=== PATIENT | female | born 1955 | race Caucasian/White ===

== ENCOUNTER 2019-10-19 15:55 | Outpatient (CLI) | payer MEDICARE, MEDICAID, SELFPAY ==
--- NOTE | 2019-10-19 17:51 | CT_ITS ---
WS: [id number] CT HEAD NONCONTRAST HISTORY: SPEECH DISTURBANCE TECHNIQUE: Contiguous axial imaging performed through the brain in 2.5 mm imaging. Bone and soft tiss ue windows. Sagittal and coronal reformats reviewed. All CT scans at [facility] use at ast one of these dose optimization techniques: automated exposure control; mA and/or kV adjustment pe r patient size (includes targeted exams where dose is matched to clinical indication); or iterative r econstruction. DLP: 783.87 mGy.cm COMPARISON: 08/23/2014 No acute intracranial hemorrhage, midline shift or mass effect. Very mild atrophy and mild chronic microvascular ischemic disease. No sulcal effacement or new infarc t. Ventricles: Normal size with no hydrocephalus. Paranasal sinuses: As visualized are clear. Mastoid air cells: Well pneumatized. Calvarium and scalp: Hyperostosis frontalis interna. No destructive bone lesions. CT/CT head wo con* [id number] IMPRESSION: 1. Mild atrophy and chronic ischemic disease. 2. No acute intracranial process.
== END 2019-10-19 15:56 | disposition home or self-care (01) ==
LOC: RAD 16:02
PROVIDERS: Family Provider Nurse Practitioner Family; PCP Family Medicine; Visit Provider Family Medicine
DX: G31.9 Degenerative disease of nervous system, unspecified (principal); R47.89 Other speech disturbances
CPT/HCPCS: 70450

== ENCOUNTER 2019-12-27 12:51 | Outpatient (CLI) | payer MEDICARE, MEDICAID, SELFPAY ==
--- NOTE | 2019-12-27 13:00 | USCV_ITS ---
Kristina Pride Age: 64 Gender: F : 1955 Exam Date: 12/27/2019 13:15 Ordering Phys: Harris Marie MD Technologist: Niharika Heart Exam Location: [facility] [place] Indication: SLURRED SPEECH Risk Factors: Previous Vascular Surgery: Right Brachial BP: / Left Brachial BP: / Right Left Velocity (cm/s) Spectral Plaque Velocity (cm/s) Spectral Plaque Syst/Diast Broadening Syst/Diast Broadening 77.20/ 27.60 Prox CCA 67.30 / 25.40 84.90/ 25.40 Mid CCA 71.70 / 37.50 83.80/ 36.40 Distal CCA 62.80 / 26.50 61.70/ 24.30 Prox ICA 67.30 / 30.90 63.90/ 28.70 Mid ICA 67.30 / 29.80 55.10/ 28.70 Distal ICA 79.40 / 29.80 71.70 ECA 71.70 0.75 ICA/CCA 1.11 Antegrade Vertebral Antegrade 33.10/ 11.00 cm/s 47.40/ 19.80 cm/s Tri Subclavian Tri CONCLUSIONS Right ICA stenosis <50%. Mild atheromatous plaque right carotid bulb/ICA. Left ICA stenosis <50%. Mild atheromatous plaque left carotid bulb/ICA. Normal antegrade Doppler flow noted in the right vertebral artery. Normal antegrade Doppler flow noted in the left vertebral artery. Rajan Chavira MD (Electronically Signed) Final Date: 27 December 2019 16:17 S
--- NOTE | 2019-12-27 13:03 | US_ITS ---
WS: [id number] ULTRASOUND ABDOMEN CLINICAL INFORMATION: GENERALIZED ABDOMINAL TENDERNESS W/O REBOUND TENDERNESS COMPARISON: None. FINDINGS: Liver Size: Enlarged Craniocaudal length: 17.4 cm. Echogenicity: Coarse echogenicity consistent with fatty infiltration. Surface nodularity: None. Mass (size and location): None. Bile ducts Intrahepatic ducts: Normal. Common bile duct diameter: 0.3 cm. Gallbladder Cholecystectomy Pancreas Normal as visualized. Spleen Splenomegaly: None. Craniocaudal length: 9.8 cm. Upper pole right renal echogenic mass appears unchanged since September 24, 2019. This measures 1.8 x 1.9 cm unchanged. Hydronephrosis: None. Size: 12.2 cm x 4.6 cm x 3.7 cm Left kidney: Normal. Hydronephrosis: None. Size: 11.7 cm x 4.6 cm x 4.2 cm. Abdominal aorta and IVC Visualized portions are normal. Ascites: None. US/US abdomen complete* [id number] IMPRESSION: 1. Right upper pole echogenic mass unchanged since September 24, 2019 and suspi cious for neoplasm in a patient this age. Today this measures 1.8 x 1.9 cm unch anged. 2. Mild hepatomegaly with Diffuse fatty infiltration 3. Cholecystectomy
== END 2019-12-27 12:52 | disposition home or self-care (01) ==
LOC: RADWPI 12:55
PROVIDERS: Family Provider Nurse Practitioner Family; PCP Family Medicine; Visit Provider Family Medicine
DX: R10.817 Generalized abdominal tenderness (principal); R47.89 Other speech disturbances; K76.0 Fatty (change of) liver, not elsewhere classified; I65.23 Occlusion and stenosis of bilateral carotid arteries
CPT/HCPCS: 76700; 93880

== ENCOUNTER → 2020-03-29 10:46 | Outpatient (BNVA) | payer MEDICARE, MEDICAID, SELFPAY | PROVIDERS: Family Provider Nurse Practitioner Family; PCP Family Medicine; Visit Provider Urology | DX: N28.89 Other specified disorders of kidney and ureter (principal); N30.20 Other chronic cystitis without hematuria; N39.41 Urge incontinence | CPT/HCPCS: 81001 ==

== ENCOUNTER 2020-05-15 07:17 | Outpatient (CLI) | payer MEDICARE, MEDICAID, SELFPAY ==
[2020-05-15 07:36] VITALS: BMI 31.6
--- NOTE | 2020-05-15 07:36 | NMCV_ITS ---
NM antoni perf SPECT r/s* [id number] Kristina Pride Age: 65 Gender: F : 1955 Exam Date: 05/15/2020 08:18 Ordering Phys: Majnit Wen MD ([email or web address]) Technologist: MARIA M Wheeler Exam Location: [facility] Indications: Chest pain STRESS TEST [facility] IMAGE PROTOCOL Rest/Stress 1 Lexiscan Day Radiopharmaceutical Dose (mCi) Administration Site Administered by Rest: Tc-99m 10.7 IV MARIA M Wheeler Sestamibi Stress:Tc-99m 32.4 IV MARIA M Wheeler Sestamibi Rest: 15-May-2020 60 Discovery 630 Stress: 15-May-2020 60 Discovery 630 0.4mg Lexiscan. Images obtained in supine and prone position. SPECT RESULTS Technical Quality: Good Raw Data Analysis: Subdiaphragmatic activity, Breast attenuation Image Corrections: No attenuation or motion correction applied Summed Stress Score: 4 Summed Rest Score: 2 Summed Difference Score: 2 PERFUSION FINDINGS There is a small in size, mild in intensity partially reversible defect seen in the apical and apical lateral region. FUNCTIONAL RESULTS (calculated via Gated SPECT) Stress Image LV EF (%): 56 Stress EDV (mL):97 TID: 1.24 Stress ESV (mL):43 FUNCTIONAL FINDINGS: There is normal left ventricular systolic function. IMPRESSIONS 1. Small in size and mild in intensity, partially reversible area in the apical and apical lateral wall. 2. Normal LV systolic function is noted Tarik Vasquez MD (Electronically Signed) Final Date: 16 May 2020 12:49 S
--- NOTE | 2020-05-15 07:36 | ECG_ITS ---
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 Interpretive Statements NAME OF STUDY: LEXISCAN SESTAMIBI STRESS TEST INDICATION: [Chest Pain, ] PROCEDURE: At the baseline, the blood pressure was 141/78 mmHg with a heart rate of 68 bpm. The electrocardiogram showed sinus rhythm with PACs. Normal axis with nonspecific ST depression. The Lexiscan was infused over a period of 20 seconds. A total of 0.4 milligrams of Lexiscan was infused. The stress phase was continued for a total of 5 minutes. Heart rate at the end of the stress phase was 95 bpm with a blood pressure 122/79 mmHg. The EKG at the peak infusion revealed sinus tachycardia with no significant ST-T wave changes. Sestamibi was injected 20 seconds after the Lexiscan infusion. Blood pressure at the end of the recovery phase was 125/77 mmHg with a heart rate of 113 beats per minute. CONCLUSION: 1. No significant EKG changes with the LexiScan infusion. 2. No LexiScan induced chest pain or cardiac arrhythmia. 3. Normal blood pressure and heart rate response. 4. Myocardial perfusion images will be interpreted separately Electronically Signed On 05-17-2020 9:13:57 CDT by Tarik Vasquez M.D. [email or web address]
[2020-05-15 09:04] VITALS: BP 131/78; PULSE 100
[2020-05-15] MEDS: regadenoson 0.4 Mg/5 ml Syringe IVP (09:04)
== END 2020-05-15 07:18 | disposition home or self-care (01) ==
PROVIDERS: PCP Family Medicine; Visit Provider Internal Medicine Cardiovascular Disease
DX: R07.9 Chest pain, unspecified (principal)
CPT/HCPCS: 78452; 93017; A9500; J2785

== ENCOUNTER → 2020-05-19 11:19 | Outpatient (BNVA) | payer MEDICARE, MEDICAID, SELFPAY | PROVIDERS: PCP Family Medicine; Visit Provider Internal Medicine | DX: R94.39 Abnormal result of other cardiovascular function study (principal) | CPT/HCPCS: 80048; 85025 ==

== ENCOUNTER → 2020-05-26 08:39 | Outpatient (BNVA) | payer MEDICARE, MEDICAID, SELFPAY | PROVIDERS: PCP Family Medicine; Visit Provider Internal Medicine | DX: Z11.59 Encounter for screening for other viral diseases (principal) | CPT/HCPCS: 87635 ==

== ENCOUNTER 2020-05-30 07:22 | Day surgery (SDC) | payer MEDICARE, MEDICAID, SELFPAY ==
[2020-05-26 11:20] LABS: Basophils % 0.6 %; Eosinophils # 0.2 10^3/uL (0.0-0.8); Eosinophils % 2.6 %; Hemoglobin 10.6 g/dL (11.5-15.3); Lymphocytes # 2.3 10^3/uL (0.8-4.8); Mean Corpuscular HGB Conc 31.2 g/dL (30.0-36.0); Mean Corpuscular Hemoglobin 26.2 pg (28.0-34.0); Mean Corpuscular Volume 84.2 fL (81-99); Monocytes # 0.5 10^3/uL (0.2-0.9); Monocytes % 7.5 %; Neutrophils # 3.87 10^3/uL (1.8-7.7); Nucleated Red Blood Cells % 0 %; Platelet Count 281 10^3/cmm (130-400); Red Blood Count 4.04 10^6/uL (4.1-5.3); Red Cell Distribution Width 15.5 % (12.1-15.1); White Blood Count 6.9 10^3/uL (4.0-10.0)
[2020-05-26 11:36] LABS: INR 0.89 (0.8-1.2)
[2020-05-26 11:41] LABS: Blood Urea Nitrogen 12 mg/dL (8-23); Calcium 9.1 mg/dL (8.5-10.5); Carbon Dioxide 28 mmol/L (22-29); Chloride 94 mmol/L (98-107); Glomerular Filtration Rate 83.7 mL/min (90-130); Glucose 107 mg/dL (65-115); Osmolality Calculated 275 mOsm/kg (285-295); Sodium 134 mmol/L (136-145)
[2020-05-29 10:13] VITALS: BMI 32.4
[2020-05-30] VITALS (10 sets, daily range): BP systolic 93–124; BP diastolic 59–80; PULSE 58–72; RESP 12–22; TEMP 36.2–36.3; O2SAT 94–98
[2020-05-30] MEDS: diphenhydrAMINE 50 mg Capsule PO (07:53)
--- NOTE | 2020-05-30 10:10 | XACV_ITS ---
Exam Room: 1 Ht: 165 cm Wt: 88 kg BSA: 2.04 m2 Gender: Female : 1955 Any Known Allergies: Other Exam Priority: Routine Indication(s): - Abnormal nuclear perfusion study - Angina Procedure(s): Procedure Description: Diagnostic procedure Procedure Description: Left Heart Catheterization Procedure Description: Coronary Angiography Diagnostic Cath Status: Elective Diagnostic Findings Left main is a short vessel. No significant disease is noted. I it bifurcates into left circumflex artery and LAD. LAD has luminal irregularities. It tapers down distally. No significant stenosis is noted. Rise to 2 diagonal branches which do not have any significant stenosis. Circumflex artery arises from left main and has no significant stenosis. It gives rise to 2 OM branches. RCA arises from right coronary cusp. It is the dominant vessel. It has mild luminal irregularities. Coronary angiography shows right dominance. Conclusions Elevated LVEDP. Symptoms likely secondary to microvascular disease. No significant disease noted in the Left Main, LAD, Circumflex, or RCA coronary arteries. Recommendations We will recommend to uptitrate the Isosorbide mononitrate. Diagnostic RX Recommendation: medical therapy and/or counseling Pressures Phase:Rest AO : 108 mmHg / 71 mmHg ( 87 mmHg ) @ 3:34:00 AM 115 mmHg / 78 mmHg ( 95 mmHg ) @ 3:38:00 AM 126 mmHg / 74 mmHg ( 101 mmHg ) @ 3:46:00 AM 123 mmHg / 76 mmHg ( 97 mmHg ) @ 3:46:00 AM 119 mmHg / 71 mmHg ( 93 mmHg ) @ 3:47:00 AM LV : 119 mmHg / 15 mmHg / @ 3:46:00 AM 119 mmHg / 19 mmHg / @ 3:46:00 AM Valves Phase:DefaultPhase AV : 0.0 mmHg @ 8:54:25 AM AV Mean Gradient: 0.0 mmHg @ 8:54:25 AM Clinical Evaluation EBL: 5mL-10mL Procedural Details Pre-Procedure Time Out. Identified patient by full name and date of as verbalized by the patient/guarantor. Does the consent match the physician's order: Yes. Accurate & Complete Informed Consent: Yes. Inpatient/Outpatient History & Physical on Chart: Yes. If H&P is completed, is and addenduem needed: No. Visualize and Verify Site with Patient/Guarantor: N/A. Relevant Radiology Images available: Yes. Pre-op teaching completed and patient verbalized understanding. The risks, benefits, and alternatives of sedation and/or procedure were discussed by physician. The patient agrees to continue. Procedure started. [facility] Clinical Fraility Score: 3: Managing Well. Water Pollution Control Inspector Indications: Worsening Angina, Abnormal Stress Test. Chest Pain Symptom Assessment: Typical Angina Symptoms. Cardiovascular Instability: No. Correct patient, site and procedure confirmed by cath team. PERRLA. Strong, equal hand brake operator sheet metal bilaterally. Lungs clear x 5 lobes. IV Site on Arrival: 20 gauge in the left forearm. IV Fluids: 0.9% NaCl at KVO. 0 mL infused prior to clinical laboratory medical director. Pre Procedural Pulses: right radial was 2+. Pre Procedural Pulses: bilateral dorsalis pedis was 3+. Pre Procedural Pulses: bilateral posterior tibial was 2+. Oxygen started at 2liters/min via nasal canula. right groin was prepped with chloroprep then draped in the usual sterile fashion. right radial was prepped with chloroprep then draped in the usual sterile fashion. Physician notified. Patient's family unavailable due to current Covid restrictions. Equipment: 6F - Radial. Cardiac Cath Pack. ACIST Manifold Kit Model BT 2000. Heparinized Saline (2 units/mL), 1000 mL bag. Physician arrived. Physician scrubbed in. Immediate Pre-Procedure Time Out. Correct Patient: Yes; Correct Procedure: Yes; Correct Site: Yes; Correct Patient Position: Yes; Correct Supplies: Yes; Dried Flammable Prep: Yes; Blood Products Available: Yes;. Lidocaine 1% infiltrated to the right radial. The patient's spouse, Salty, notified of the start of the procedure by telephone. Arterial access obtained. A 5 syrian TIG catheter in over the exchange wire. Patient was Covid (-) on 05/26/2020. Baseline sample Acquired. HR: 66 BPM. Multiple views taken of left coronary artery. Catheter redirected to the RCA. Multiple views taken of right coronary artery. Catheter removed over the exchange wire. A 5 syrian Angled Pig catheter in over the exchange wire. EDP Sample taken: LV 119/15,25; HR: 70 BPM; SpO2: 99%. Pullback taken: LV 119/19,32; AO 126/74(101); Mean: 0mmHg, Peak to Peak: 0mmHg, SEP: 6sec/min; HR: 74 BPM; SpO2: 100%. Physician review of cine films. Catheter removed over the exchange wire. A TR Band was successful obtaining hemostatsis at the Right Radial artery insertion site. Vital chart was stopped. Physician scrubbed out. TR band placed. Hemostasis obtained. Post Procedure: Pulses reassessed and unchanged. PERRLA. Strong, equal hand brake operator sheet metal bilaterally. No VTE prophylaxis required. Medication's Wasted: Lidocaine 1% = 18 mL. Medication's Wasted: Heparin = 1000 units. Medication's Wasted: Nitro = 49.8 mg. Total IV fluids: 40.3 mL. Post-op diagnosis: Normal Coronaries. Complications: none. Estimated blood loss: 5mL-10mL. Procedure completed. Patient transferred by wheelchair to 1st floor. Site: Right Radial artery Sheath Size: 6 Fr Hemostasis Method: TR Band Hemostasis Success: Successful Procedure Medications Start: 8:19 AM Stop: 8:19 AM Medication: Versed Amount: 1 mg Route: I.V. Start: 8:19 AM Stop: 8:19 AM Medication: Fentanyl Amount: 50 mcg Route: I.V. Start: 8:26 AM Stop: 8:26 AM Medication: Versed Amount: 1 mg Route: I.V. Start: 8:26 AM Stop: 8:26 AM Medication: Fentanyl Amount: 50 mcg Route: I.V. Start: 8:31 AM Stop: 8:31 AM Medication: Nitrogylcerin Amount: 200 mcg Route: I.A. Start: 8:33 AM Stop: 8:33 AM Medication: Heparin Amount: 5000 units Route: I.V. I, the attending physician, have reviewed and verified all procedure medications. Yes, all medications given per verbal order History/Risk Factors Hypertension: Yes Dyslipidemia: Yes Peripheral Arterial Disease (PAD): No Myocardial Infarction (PA): No Obesity: Yes Renal Disease: No Tobacco Use: Current/Recent(w/in 1 year) Prior Interventions PCI: No CABG: No Valve Surgery: No Report Signatures Finalized by:Tarik Vasquez MD on 05/31/2020 9:19:35 AM
--- NOTE | 2020-05-30 15:22 | W.PM.OPSUD ---
Surgery/Procedure H&P Update DATE OF PROCEDURE: May 30, 2020 DATE H&P PERFORMED: 05/19/20 H&P UPDATE INFORMATION: I have reviewed H&P completed within last 30 days, I have examined patient prior to procedure and No changes to prior documentation PREOP DIAGNOSIS: Suspected CAD PRIMARY INDICATION FOR PROCEDURE: Chest pain/abnormal stress test PLANNED PROCEDURE: Operation Date: 05/30/20 08:30 Proposed Procedures p Cardiac Catheterization(Left) - Tarik Vasquez M.D PATIENT REASSESSED PRIOR TO SEDATION, WITH NO CHANGE NOTED: Yes PHYSICAL EXAM: alert, oriented x 3, clear to auscultation bilaterally and regular rate & rhythm AIRWAY EVAL/ANESTHESIA PLAN: normal airway, ASA II, Risks, benefits & alternatives of sedation and/or procedure discussed and Patient agrees to continue as planned
== END 2020-05-30 14:10 | disposition home or self-care (01) ==
LOC: CCL 09:05 → CSU 09:17
PROVIDERS: PCP Family Medicine; Visit Provider Internal Medicine
DX: R94.39 Abnormal result of other cardiovascular function study (principal); I25.10 Atherosclerotic heart disease of native coronary artery without angina pectoris; J44.9 Chronic obstructive pulmonary disease, unspecified; E11.9 Type 2 diabetes mellitus without complications; E78.5 Hyperlipidemia, unspecified; I10 Essential (primary) hypertension; G47.30 Sleep apnea, unspecified; G47.33 Obstructive sleep apnea (adult) (pediatric); E66.9 Obesity, unspecified; M79.7 Fibromyalgia; K21.9 Gastro-esophageal reflux disease without esophagitis; I27.20 Pulmonary hypertension, unspecified; M19.90 Unspecified osteoarthritis, unspecified site; F41.9 Anxiety disorder, unspecified; Z79.51 Long term (current) use of inhaled steroids; Z79.82 Long term (current) use of aspirin; Z79.84 Long term (current) use of oral hypoglycemic drugs; Z79.899 Other long term (current) drug therapy; F17.210 Nicotine dependence, cigarettes, uncomplicated; R07.9 Chest pain, unspecified
CPT/HCPCS: 12345; 36415; 80048; 85025; 85610; 93452; C1769; C1887; C1894; J1644; J2250; J3010; J3490; J7030; Q0163; Q9967

== ENCOUNTER → 2020-06-08 14:31 | Outpatient (BNVA) | payer MEDICARE, MEDICAID, SELFPAY | PROVIDERS: PCP Family Medicine; Visit Provider Nurse Practitioner Family | DX: R94.39 Abnormal result of other cardiovascular function study (principal) | CPT/HCPCS: 80048 ==

== ENCOUNTER 2020-11-02 20:00 | Outpatient (CLI) | payer MEDICARE, MEDICAID, SELFPAY | END 2020-11-02 20:01 | disposition home or self-care (01) | LOC: SLEEP 11-03 09:06 | PROVIDERS: PCP Family Medicine; Visit Provider Internal Medicine Pulmonary Disease | DX: G47.33 Obstructive sleep apnea (adult) (pediatric) (principal) | CPT/HCPCS: 95810 ==

== ENCOUNTER 2021-02-01 20:00 | Outpatient (CLI) | payer MEDICARE, MEDICAID, SELFPAY | END 2021-02-01 20:01 | disposition home or self-care (01) | LOC: SLEEP 02-02 12:04 | PROVIDERS: PCP Family Medicine; Visit Provider Family Medicine | DX: G47.33 Obstructive sleep apnea (adult) (pediatric) (principal) | CPT/HCPCS: 95811 ==

== ENCOUNTER 2021-03-21 10:30 | Outpatient (CLI) | payer MEDICARE, MEDICAID, SELFPAY ==
--- NOTE | 2021-03-21 10:40 | CT_ITS ---
WS: [id number] LDCT LUNG CANCER SCREENING HISTORY: HX OF TOBACCO USE TECHNIQUE: Axial imaging performed from the apices to 1 cm below the costophrenic angles. Coronal and sagittal reformats are submitted with axial MIP series. All CT scans at [facility] use at least one of these dose optimization techniques: automated exposure control; mA and/or kV adjustment per patient size (includes targeted exams where dose is matched to clinical indication); or iterativ e reconstruction. DLP: 54.98 mGy.cm DIvol: 1.58 mGy COMPARISON: 09/01/2019 Diagnostic quality: Satisfactory Lung Nodules: None. Lungs: Subsegmental stable atelectasis at the lingula with adjacent calcification. Moderate pulmonary hyperexpansion from emphysema. Heart: Normal size heart. Other findings: Calcified LEFT hilar lymph nodes. Mild atherosclerosis thoracic aorta. Small hiatal h ernia. Prior cholecystectomy. CT/CT lung screening [id number] IMPRESSION: LUNG-RADS: 1-Negative FOLLOW UP: 12 Month: Continue annual screening with LDCT OTHER FINDINGS (S MODIFIER): None.
== END 2021-03-21 10:31 | disposition home or self-care (01) ==
LOC: RAD 10:32
PROVIDERS: PCP Family Medicine; Visit Provider Family Medicine
DX: Z12.2 Encounter for screening for malignant neoplasm of respiratory organs (principal); Z87.891 Personal history of nicotine dependence
CPT/HCPCS: 71271

== ENCOUNTER → 2021-03-29 10:29 | Outpatient (BNVA) | payer MEDICARE, MEDICAID, SELFPAY | PROVIDERS: PCP Family Medicine; Visit Provider Urology | DX: N30.20 Other chronic cystitis without hematuria (principal) | CPT/HCPCS: 81003 ==

== ENCOUNTER 2021-09-20 13:45 | Outpatient (CLI) | payer MEDICARE, MEDICAID, SELFPAY ==
--- NOTE | 2021-09-20 14:01 | MM_ITS ---
WS: [id number] BILATERAL SCREENING DIGITAL MAMMOGRAM WITH CAD HISTORY: SCREEN COMPARISON: 09/07/2018 and 07/30/2016 Bilateral CC and MLO views submitted. Computer aided detection analyzed. Breast composition: There are scattered areas of fibroglandular density. No suspicious masses, microc alcifications or architectural distortion. Benign calcifications in the anterior LEFT breast. MM/[place] [id number] IMPRESSION: BI-RADS: 2-Benign FOLLOW UP: 1 Year Follow-up
== END 2021-09-20 13:46 | disposition home or self-care (01) ==
LOC: RADSHAW 13:51
PROVIDERS: PCP Family Medicine; Visit Provider Family Medicine
DX: Z12.31 Encounter for screening mammogram for malignant neoplasm of breast (principal)
CPT/HCPCS: 77067

== ENCOUNTER → 2021-12-24 13:12 | Outpatient (BNVA) | payer MEDICARE, MEDICAID, SELFPAY | PROVIDERS: PCP Family Medicine; Visit Provider Internal Medicine Cardiovascular Disease | DX: R00.2 Palpitations (principal); J44.9 Chronic obstructive pulmonary disease, unspecified; N30.20 Other chronic cystitis without hematuria; F17.210 Nicotine dependence, cigarettes, uncomplicated; E78.5 Hyperlipidemia, unspecified | CPT/HCPCS: 99213 ==

== ENCOUNTER → 2022-01-28 10:59 | Outpatient (BNVA) | payer MEDICARE, MEDICAID, SELFPAY | PROVIDERS: PCP Family Medicine; Visit Provider Nurse Practitioner Family | DX: R00.2 Palpitations (principal); Z87.891 Personal history of nicotine dependence | CPT/HCPCS: 99213 ==

== ENCOUNTER 2022-02-27 11:11 | Outpatient (CLI) | payer MEDICARE, MEDICAID, SELFPAY ==
--- NOTE | 2022-02-27 11:26 | US_ITS ---
WS: [id number] Abdomen ultrasound, 02/27/2022 Clinical Data: FLANK PAIN Comparison: Abdomen ultrasound, 12/27/2019. Findings: The pancreas shows no cyst, pseudocyst or evidence of pancreatitis. The liver shows no cysts, masses or dilated intrahepatic ducts. The portal vein shows normal flow. The gallbladder is absent. The common bile duct is 0.5 cm and no intraductal abnormalities are noted. The right kidney is 10.6 cm. No cysts, masses or hydronephrosis is seen. The right upper pole mass se en on the prior study is not imaged today. The left kidney is 11.9 cm. There is a small echogenic region of the superior left kidney measuring 1 .10 x 1.24 x 1.46 cm.. The abdominal aorta is not dilated and the inferior vena cava has normal flow. No vascular abnormalit ies are seen. The spleen measures 8.3 cm and there are no intrasplenic masses or capsular abnormalities. US/US abdomen complete* [id number] Impression: 1 cholecystectomy. 2. Right upper pole renal mass not imaged today. 3. Small echogenic density of the superior left kidney and recommend repeat abd ominal ultrasound in 90 days.
== END 2022-02-27 11:12 | disposition home or self-care (01) ==
LOC: RAD 11:12
PROVIDERS: PCP Family Medicine; Visit Provider Family Medicine
DX: R10.9 Unspecified abdominal pain (principal)
CPT/HCPCS: 76700

== ENCOUNTER → 2022-03-28 14:22 | Outpatient (BNVA) | payer OTHER, MEDICAID, SELFPAY | PROVIDERS: PCP Family Medicine; Visit Provider Urology | DX: N39.41 Urge incontinence (principal); N28.89 Other specified disorders of kidney and ureter | CPT/HCPCS: 81003 ==

== ENCOUNTER 2022-04-16 06:28 | Outpatient (CLI) | payer MEDICARE, MEDICAID, SELFPAY ==
[2022-04-16 08:02] LABS: Blood Urea Nitrogen 11 mg/dL (8-23); Glomerular Filtration Rate 62.3 mL/min (90-130)
[2022-04-16] MEDS: iohexol 350 mg/mL 100 mL Btl IV (08:20)
--- NOTE | 2022-04-16 08:30 | CT_ITS ---
WS: [id number] CT ABDOMEN PELVIS TECHNIQUE: Noncontrast CT of the abdomen and contrast-enhanced CT of the abdomen and pelvis with davin nal and sagittal reformatted images. CLINICAL INFORMATION: Renal Mass COMPARISON: CT 2017 and ultrasound 12/27/2019 and 02/27/2022 DLP: 3493.[address] scans at [facility] use at least one of these dose optimization techniques: automated e xposure control; mA and/or kV adjustment per patient size (includes targeted exams where dose is matc hed to clinical indication); or iterative reconstruction. FINDINGS: Diffuse fatty infiltration liver. Cholecystectomy. Normal portal vein and splenic vein. Normal spleen . Normal GE junction. Lung bases are well aerated. Small RIGHT adrenal adenoma or adrenal thickening. LEFT adrenal gland is normal. No hydronephrosis in either kidney. RIGHT renal cortical scarring. Previously described RIGHT upper p ole renal mass appears to have been resected compared to 2019. Surgical clips upper pole RIGHT kidney . Incidental underlying RIGHT upper pole renal cyst measuring 14 mm. Small exophytic increased attenuation LEFT renal lesion measuring 10 mm is technically indeterminant. Normal sigmoid colon. No evidence of small or large bowel obstruction. No free fluid in the pelvis. N ormal pancreatic parenchymal enhancement. Normal caliber abdominal aorta. Prior hysterectomy. Prior a ppendectomy. CT/CT abdomen pelvis wo/w [id number] IMPRESSION: 1. No hydronephrosis in either kidney. 2. Normal excretion on the delayed images. Normal bladder filling. 3. RIGHT upper pole renal lesion with adjacent surgical clips presumably has b een resected since the prior chest CT September 01, 2019. No solid mass RIGHT ki dney. RIGHT upper pole renal cyst. 4. Indeterminate exophytic small LEFT renal lesion measuring 10 mm is technica lly indeterminant. Recommend interval follow-up with ultrasound or contrast-enh anced CT abdomen pelvis. 5. Prior cholecystectomy. 6. Prior hysterectomy and appendectomy. 7. No other acute findings.
== END 2022-04-16 06:29 | disposition home or self-care (01) ==
LOC: RAD 06:30
PROVIDERS: PCP Family Medicine; Visit Provider Urology
DX: N28.89 Other specified disorders of kidney and ureter (principal); N28.9 Disorder of kidney and ureter, unspecified
CPT/HCPCS: 36415; 74178; 81003; 82565; 84520; 99213

== ENCOUNTER → 2022-06-19 14:58 | Outpatient (BNVA) | payer MEDICARE, MEDICAID, SELFPAY | PROVIDERS: PCP Family Medicine; Visit Provider Internal Medicine | DX: I25.10 Atherosclerotic heart disease of native coronary artery without angina pectoris (principal); I10 Essential (primary) hypertension; J44.9 Chronic obstructive pulmonary disease, unspecified; E78.5 Hyperlipidemia, unspecified; E11.9 Type 2 diabetes mellitus without complications; Z79.84 Long term (current) use of oral hypoglycemic drugs; E66.9 Obesity, unspecified; Z68.30 Body mass index [BMI] 30.0-30.9, adult; G47.33 Obstructive sleep apnea (adult) (pediatric); I27.20 Pulmonary hypertension, unspecified; F17.210 Nicotine dependence, cigarettes, uncomplicated | CPT/HCPCS: 99214 ==

== ENCOUNTER → 2023-03-19 15:07 | Outpatient (BNVA) | payer MEDICARE, MEDICAID, SELFPAY | PROVIDERS: PCP Family Medicine; Visit Provider Internal Medicine | DX: I25.10 Atherosclerotic heart disease of native coronary artery without angina pectoris (principal); J44.9 Chronic obstructive pulmonary disease, unspecified; Z72.0 Tobacco use; E78.5 Hyperlipidemia, unspecified; E11.9 Type 2 diabetes mellitus without complications; Z79.84 Long term (current) use of oral hypoglycemic drugs; E66.9 Obesity, unspecified; Z68.33 Body mass index [BMI] 33.0-33.9, adult; G47.33 Obstructive sleep apnea (adult) (pediatric); I27.20 Pulmonary hypertension, unspecified; I10 Essential (primary) hypertension | CPT/HCPCS: 99213 ==

== ENCOUNTER → 2023-12-24 12:56 | Outpatient (BNVA) | payer MEDICAID, SELFPAY | PROVIDERS: PCP Family Medicine; Visit Provider Internal Medicine | DX: I25.10 Atherosclerotic heart disease of native coronary artery without angina pectoris (principal); J44.9 Chronic obstructive pulmonary disease, unspecified; Z72.0 Tobacco use; E78.5 Hyperlipidemia, unspecified; E11.9 Type 2 diabetes mellitus without complications; E66.9 Obesity, unspecified; G47.33 Obstructive sleep apnea (adult) (pediatric); I27.20 Pulmonary hypertension, unspecified; Z68.34 Body mass index [BMI] 34.0-34.9, adult; I10 Essential (primary) hypertension | CPT/HCPCS: 99214 ==